=== PATIENT | female | born 1980 | race American Indian/Alaskan Native ===

== ENCOUNTER 2021-07-19 12:09 | Emergency (ER) | payer BC, MEDICAID | END 2021-07-19 12:10 | disposition left against medical advice (07) | LOC: ED 12:09 | DX: Z53.21 Procedure and treatment not carried out due to patient leaving prior to being seen by health care provider (principal) ==

== ENCOUNTER 2021-07-29 23:38 | Emergency (ER) | payer MEDICAID ==
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
[2021-07-30 07:28] VITALS: BP 106/100
== END 2021-07-30 07:35 | disposition home or self-care (01) ==
LOC: ED 23:38
DX: S16.1XXA Strain of muscle, fascia and tendon at neck level, initial encounter (principal); M54.50 Low back pain, unspecified; F17.200 Nicotine dependence, unspecified, uncomplicated; V89.2XXA Person injured in unspecified motor-vehicle accident, traffic, initial encounter; Y93.89 Activity, other specified; Y92.89 Other specified places as the place of occurrence of the external cause; Y99.8 Other external cause status
CPT/HCPCS: 99282